=== PATIENT | female | born 1950 | race Caucasian/White ===

== ENCOUNTER → 2016-10-20 | Outpatient (CLI) | payer OTHER, BC ==
[~2016-10-20] MED LIST: ACET-1257 PO; AMOX500C3 PO; ASCO1CAP3 PO; ASCO500T3 PO; ASPCH81X PO; ASPI81TA28 PO; ATOR-24 PO; BISM262S7 PO; BUTA1CAP17 PO; CARB0.5D28 OPB; CHOL2000 PO; CLOT1CRE80 TOP; DICL-201 PO; DICL1GEL12 EXT; DICL1TAB5 PO; FENO160T PO; FEXO1TAB49 PO; FRCT/ PO; HYDR2.5L TOP; HYDR25TA4 PO; LEVO50TA PO; LEVO50TA6 PO; LPT/40 PO; METO1TAB70 PO; MISCCAP80 PO; MOME0.1O TOP; NYSTCRE32 TOP; OMEG12006 PO; POLY1DRO19; POTA-331 PO; POTA10CA28 PO; PPTBS PO; PRLSR20 PO; PROB1TAB16 PO; VITA400C15 PO; VITA400C3 PO; VITAMIN D3 PO; [UNRECOGNIZED DRUG - OTHER] EXT; [UNRECOGNIZED DRUG - OTHER] PO; [UNRECOGNIZED DRUG - OTHER] PO; [UNRECOGNIZED DRUG - OTHER] PO; [UNRECOGNIZED DRUG - REMARK] PO
--- NOTE | 2016-10-20 13:40 | DIAGNOSTIC IMAGING REPORT ---
LEFT KNEE RADIOGRAPHS WITH COMPARISON STANDING AP RADIOGRAPH OF THE RIGHT KNEE CLINICAL HISTORY: Medial left knee pain. Recent fall. COMPARISON: Knee radiograph April 09, 2016. FINDINGS: Alignment of the total right knee arthroplasty appears anatomic on this AP projection. There is marked narrowing of the patellofemoral joint space with lateral tilt of the patella. There is extensive osteophytosis of the left knee with chondrocalcinosis. Joint space calcifications are present. These were present on prior exam. There is no acute fracture within the left knee. There is no left knee joint effusion. IMPRESSION: 1. No acute fracture. 2. Marked patellofemoral compartment joint space narrowing with extensive osteophytosis and chondrocalcinosis of the left knee. The findings raise the possibility of CPPD arthropathy. Electronically signed by: Donovan Medellin M.D. 10/20/2016 1:38 PM Dictated Date/Time: 10/20/2016 1:36 PM
== END | disposition home or self-care (01) ==
LOC: C.RDSM 13:09
PROVIDERS: ATTEND Physical Medicine & Rehabilitation Sports Medicine
DX: M25.762 Osteophyte, left knee (principal); M11.262 Other chondrocalcinosis, left knee

== ENCOUNTER → 2017-01-04 | Outpatient (CLI) | payer OTHER, BC ==
[~2017-01-04] MED LIST changes: +METO-648 PO; -METO1TAB70 PO; +OXYC-57 PO; +WARF2TAB PO
== END | disposition home or self-care (01) ==
LOC: C.PAPS 07:40
PROVIDERS: ATTEND Obstetrics & Gynecology
DX: Z01.419 Encounter for gynecological examination (general) (routine) without abnormal findings (principal)

== ENCOUNTER → 2017-03-09 | Outpatient (CLI) | payer OTHER, BC ==
[~2017-03-09] MED LIST changes: -ASCO1CAP3 PO; -ASPI81TA28 PO; -BISM262S7 PO; -BUTA1CAP17 PO; -CLOT1CRE80 TOP; -DICL1TAB5 PO; -LEVO50TA PO; -LPT/40 PO; -METO-648 PO; +METO1TAB70 PO; -MISCCAP80 PO; -NYSTCRE32 TOP; -OXYC-57 PO; -POLY1DRO19; -POTA-331 PO; -VITA400C15 PO; -VITAMIN D3 PO; -WARF2TAB PO; -[UNRECOGNIZED DRUG - REMARK] PO
--- NOTE | 2017-03-09 11:01 | DIAGNOSTIC IMAGING REPORT ---
RIGHT FOOT MIN 3 VIEWS CLINICAL HISTORY: 66 years-old Female presenting with RIGHT FOOT PAIN , No known trauma. TECHNIQUE: Frontal, oblique, and lateral views of the right foot were obtained. COMPARISON: 2007. FINDINGS: Osteopenia. Valgus alignment of the first great toe increased from prior. Associated mild degenerative change of the first metatarsophalangeal joint. Os naviculare noted. Ossification along the medial aspect of the base of the first metatarsal is unchanged from prior, possibly development os or old injury. Mild loss of height of the longitudinal arch. Bone spur noted at the inferior calcaneus. Atherosclerosis. Degenerative changes at the ankle mortise IMPRESSION: 1. No acute osseous injury of the right foot. 2. Mild height loss of the longitudinal arch could suggest pes planus. Electronically signed by: Parag Gardner M.D. 03/09/2017 11:00 AM Dictated Date/Time: 03/09/2017 10:56 AM
== END | disposition home or self-care (01) ==
LOC: C.RDSM 12:45
PROVIDERS: ATTEND Physician Assistant
DX: M79.671 Pain in right foot (principal); R93.7 Abnormal findings on diagnostic imaging of other parts of musculoskeletal system

== ENCOUNTER → 2017-03-16 | Outpatient (CLI) | payer OTHER, BC | END | disposition home or self-care (01) | LOC: C.PATHSPEC 07:41 | PROVIDERS: ATTEND Physician Assistant | DX: N64.52 Nipple discharge (principal) ==

== ENCOUNTER → 2017-03-16 | Outpatient (CLI) | payer OTHER, BC | END | disposition home or self-care (01) | LOC: C.LABSPEC 17:49 | PROVIDERS: ATTEND Physician Assistant | DX: N64.52 Nipple discharge (principal) ==

== ENCOUNTER → 2017-03-22 | Outpatient (CLI) | payer OTHER, BC ==
--- NOTE | 2017-03-22 15:19 | MAMMOGRAPHY REPORT ---
BILATERAL DIGITAL DIAGNOSTIC MAMMOGRAM TOMOSYNTHESIS WITH CAD AND TARGETED RIGHT ULTRASOUND: 7 CLINICAL HISTORY: 66-year-old woman with a few week history of pain in the right breast. One and a h shari weeks ago she noticed bloody nipple discharge for which she was assessed by DETECTIVE AND INTELLIGENCE ANALYST and has since been on antibiotics. The bloody/pus-containing nipple discharge persists. Also due for annual bilat eral screening exam. TECHNIQUE: Bilateral breast tomosynthesis in addition to standard 2D mammography was performed. Curre nt study was also evaluated with a Computer Aided Detection (CAD) system. COMPARISON: Comparison is made to exams dated: 09/11/2015 mammogram, 09/10/2014 mammogram, 09/05/2013 staci mogram, 09/04/2012 mammogram, 09/02/2011 mammogram, and 09/01/2010 mammogram - [facility]. BREAST COMPOSITION: The tissue of both breasts is almost entirely fatty. FINDINGS: There is a new large dense mass and also a few associated air bubbles in the 6:00 anterior right breast measuring approximately 5 x 5 x 6 cm. No other new suspicious mass, focal area of archi tectural distortions or suspicious calcifications are identified bilaterally. Targeted ultrasound was performed in the area of pain pointed out by the patient, in the 6:00 anterio r periareolar right breast. There is a large heterogeneous fluid collection measuring approximately 4.0 x 3.0 x 4.6 cm. An additional finding of skin erythema is most prominent in the 3:00 periareolar right breast, in which this fluid collection extends very close to the dermis. IMPRESSION: ACR-BI-RADS CATEGORY 3: PROBABLY BENIGN, TARGETED ULTRASOUND ACR-BI-RADS CATEGORY 3: PRO BABLY BENIGN 1. A new 5 cm fluid collection in the 3:00 through 6:00 periareolar and retroareolar right breast is most compatible with an abscess, given the skin erythema, pain and appearance of the nipple discharg e. Surgical consultation is recommended. This was discussed with the patient and an appointment was obtained the same day with Dr. Barbosa, general surgery. 2. Otherwise stable mammographic appearance of the breasts without mammographic evidence of malignan cy. 3. Follow-up at complete resolution is recommended in the right breast, to exclude any underlying pr ocess. These results and recommendations were discussed with the patient at the time of the exam. Approximately 10% of breast cancers are not detected with mammography. A negative mammographic report should not delay biopsy if a clinically suggestive mass is present. Myrtle Gomes M.D. ay/:03/22/2017 10:37:06 Dynamometer Tester: Jennifer JARAMILLO (R)), [facility] letter sent: Follow Up Recommended 3 BI-RADS Code: ACR-BI-RADS Category 3: Probably Benign Ultrasound BI-RADS: ACR-BI-RADS Category 3: Pr obably Benign
== END | disposition home or self-care (01) ==
LOC: C.MAMM 09:47
PROVIDERS: ATTEND Physician Assistant
DX: N64.52 Nipple discharge (principal); N64.9 Disorder of breast, unspecified

== ENCOUNTER → 2017-05-11 | Outpatient (CLI) | payer OTHER, BC ==
[~2017-05-11] MED LIST changes: -HYDR25TA4 PO; -VITA400C3 PO; -[UNRECOGNIZED DRUG - OTHER] EXT; -[UNRECOGNIZED DRUG - OTHER] PO; -[UNRECOGNIZED DRUG - OTHER] PO; -[UNRECOGNIZED DRUG - OTHER] PO
--- NOTE | 2017-05-11 16:01 | DIAGNOSTIC IMAGING REPORT ---
L PELVIS UNILATERAL HIP 1 VIEW HISTORY: 66 years-old Female CHRONIC LEFT HIP PAIN chronic left hip pain. COMPARISON: None available TECHNIQUE: AP view of the pelvis with frog-leg view of the left hip FINDINGS: Moderate degenerative changes involve the bilateral femoral acetabular joints and SI joints. Severe facet arthropathy involves the lower lumbar spine. No acute fracture or dislocation. Soft tissues are unremarkable. IMPRESSION: 1. No acute fracture or dislocation. 2. Moderate degenerative changes of the bilateral femoral acetabular joints. The above report was generated using voice recognition software. It may contain grammatical, syntax or spelling errors. Electronically signed by: Elan Silva M.D. 05/11/2017 3:59 PM Dictated Date/Time: 05/11/2017 3:58 PM
== END | disposition home or self-care (01) ==
LOC: C.RDSM 11:39
PROVIDERS: ATTEND Physician Assistant
DX: M16.0 Bilateral primary osteoarthritis of hip (principal)

== ENCOUNTER 2017-06-21 05:14 | Inpatient (IN) | payer OTHER, BC ==
[2017-03-02 14:38] VITALS: BMI 38.0
--- NOTE | 2017-03-02 15:13 | PAT Medication Instructions ---
Service Date Mar 02, 2017. Current Home Medication List Acetamin/Butalbital/Caffeine (Fioricet), 1 TAB PO DIRECTED PRN for Pain Acetaminophen (Tylenol Extra Strength), 2 TAB PO Q8H PRN for Pain Amoxicillin (Amoxil), 500 MG PO DIRECTED PRN for BEFORE INVASIVE PROCEDURES Ascorbic Acid (Vitamin C), 1 TAB PO QPM Aspirin (Aspirin Chewable), 81 MG PO BID Atorvastatin (Lipitor), 40 MG PO QPM Bismuth Subsalicylate (Pepto-Bismol Susp), 1 DOSE PO DAILY PRN for Indigestion Carboxymethylcellulose Sodium (Refresh Tears), 1 DROP OPB BID PRN for DRY EYES Cholecalciferol (Vitamin D3), 1 CAP PO QPM Diclofenac (Voltaren), 75 MG PO BID Diclofenac Sodium (Topical) (Voltaren 1% Top Gel), 1 DOSE EXT BID PRN for Pain Fenofibrate (Tricor), 160 MG PO QPM Fexofenadine Hcl (Mia Allergy), 1 TAB PO HS Hydrochlorothiazide (Hctz), 25 MG PO DAILY AT 1200 Hydrocortisone (Topical) (Hydrocortisone), 1 APPLN TOP BID PRN for ITCHING Levothyroxine Sodium (Levothyroxine Sodium), 1 TAB PO QAM Metoprolol Succinate (Toprol Xl), 200 MG PO QPM Mometasone Furoate (Elocon), 1 APPLN TOP BID PRN for RASH [place]-3 Fatty Acids ([place] 3), 1 CAP PO QPM Omeprazole (Prilosec), 20 MG PO QAM Potassium Chloride (Micro-K Ext Rel), 10 MEQ PO QPM Probiotic Product (Probiotic), 1 TAB PO QPM Vitamin E (Vitamin E 400 Iu), 400 INTER.UNIT PO QPM [Adv. Proprietary], 2 ML PO BID [Macro-Minerals], 1 ML PO BID [Pro Balancing Cream], 1 DOSE EXT DAILY [Sea Vegetables], 1 ML PO BID Medication Instructions For Your Scheduled Surgery - Instructions to be given by surgeon: Diclofenac (Voltaren), 75 MG PO BID Aspirin (Aspirin Chewable), 81 MG PO BID - Hold the following medications 2 weeks prior to surgery: Vitamin E (Vitamin E 400 Iu), 400 INTER.UNIT PO QPM [Adv. Proprietary], 2 ML PO BID [Macro-Minerals], 1 ML PO BID [Sea Vegetables], 1 ML PO BID [place]-3 Fatty Acids ([place] 3), 1 CAP PO QPM - Hold the following medications 24 hours prior to surgery: [Pro Balancing Cream], 1 DOSE EXT DAILY Diclofenac Sodium (Topical) (Voltaren 1% Top Gel), 1 DOSE EXT BID PRN for Pain Fenofibrate (Tricor), 160 MG PO QPM Mometasone Furoate (Elocon), 1 APPLN TOP BID PRN for RASH Hydrocortisone (Topical) (Hydrocortisone), 1 APPLN TOP BID PRN for ITCHING - Hold the following medications the morning of surgery: Hydrochlorothiazide (Hctz), 25 MG PO DAILY AT 1200 Bismuth Subsalicylate (Pepto-Bismol Susp), 1 DOSE PO DAILY PRN for Indigestion Acetamin/Butalbital/Caffeine (Fioricet), 1 TAB PO DIRECTED PRN for Pain - Take the following medications the morning of surgery with a sip of water OTHERWISE NOTHING TO EAT OR DRINK AFTER MIDNIGHT: Omeprazole (Prilosec), 20 MG PO QAM Acetaminophen (Tylenol Extra Strength), 2 TAB PO Q8H PRN for Pain (may take if needed up to 4 hours prior to surgery) Levothyroxine Sodium (Levothyroxine Sodium), 1 TAB PO QAM Carboxymethylcellulose Sodium (Refresh Tears), 1 DROP OPB BID PRN for DRY EYES - Take the following medications as scheduled the night before surgery: Potassium Chloride (Micro-K Ext Rel), 10 MEQ PO QPM Probiotic Product (Probiotic), 1 TAB PO QPM Cholecalciferol (Vitamin D3), 1 CAP PO QPM Ascorbic Acid (Vitamin C), 1 TAB PO QPM Metoprolol Succinate (Toprol Xl), 200 MG PO QPM Acetaminophen (Tylenol Extra Strength), 2 TAB PO Q8H PRN for Pain Carboxymethylcellulose Sodium (Refresh Tears), 1 DROP OPB BID PRN for DRY EYES If you have any questions please call us at [phone] or [phone] or [phone]
[2017-03-02 15:59] LABS: BASO % 0.3 %; BASO ABS # 0.02 K/uL (0-0.2); COMPLETE YES; EOS % 1.5 %; IG% 0.6 %; LYMPH ABS # 0.93 K/uL (1.2-3.4); MEAN CELL VOLUME 80.1 fL (80-100); MEAN CORPUSCULAR HEMOGLOBIN 25.9 pg (25-34); MEAN CORPUSCULAR HGB CONC 32.3 g/dl (32-36); MEAN PLATELET VOLUME 10.8 fL (7.4-10.4); MONO % 8.6 %; PLATELET COUNT 302 K/uL (130-400); RED BLOOD COUNT 4.87 M/uL (4.2-5.4); WHITE BLOOD COUNT 6.66 K/uL (4.8-10.8)
[2017-03-02 16:09] LABS: PARTIAL THROMBOPLASTIN RATIO 1.1; PROTHROMBIN TIME (PATIENT) 10.9 SECONDS (9.0-12.0)
--- NOTE | 2017-03-02 16:14 | DIAGNOSTIC IMAGING REPORT ---
CHEST 2 VIEWS ROUTINE CLINICAL HISTORY: Preoperative evaluation. COMPARISON STUDY: Chest radiograph November 14, 2014. FINDINGS: Lung volumes are normal. Lungs are clear. No pneumothorax or pleural effusion is present. Cardiac size is normal. Mediastinal contours are normal. There is no evidence of pulmonary edema. Chronic deformity of the proximal right humerus is incidentally noted. IMPRESSION: No acute cardiopulmonary findings. Electronically signed by: Donovan Medellin M.D. 03/02/2017 4:12 PM Dictated Date/Time: 03/02/2017 4:11 PM
[2017-03-02 16:21] LABS: URINE APPEARANCE CLEAR (CLEAR); URINE BILIRUBIN NEG (NEG); URINE COLOR YELLOW; URINE NITRITE NEG (NEG); URINE SPECIFIC GRAVITY 1.015 (1.000-1.030); UROBILINOGEN NEG (NEG); ZZUR CULT IF INDIC CLEAN CATCH NO
[2017-03-02 16:24] LABS: MANUAL MICROSCOPIC REQUIRED? NO; REVIEW REQ? NO
[2017-03-02 16:25] LABS: CALCIUM 9.7 mg/dl (8.5-10.1); CREATININE 1.1 mg/dl (0.60-1.20); POTASSIUM 4.1 mmol/L (3.5-5.1)
[2017-05-01 16:08] VITALS: BMI 38.0
--- NOTE | 2017-06-14 08:52 | HISTORY & PHYSICAL EXAMINATION ---
DATE OF ADMISSION: 06/21/2017 CHIEF COMPLAINT: Left knee pain. HISTORY OF PRESENT ILLNESS: This 67-year-old white female presents to the office with complaints of left knee pain that had been ongoing for the last several years. Pain became acutely worse in October 2016. She slipped and fell at that time. She was previously scheduled for total knee arthroplasty on 03/29/2017. She developed a right breast mastitis at that time and had to postpone surgery. She is now ready to proceed. Pain is worse with weightbearing. It is affecting her ADLs. Pain is both medial and lateral. She denies any catching or locking. No buckling. Occasional mild effusions. She has tried activity modification, oral anti-inflammatories, and physical therapy without lasting relief. 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 She has a history of previous right total knee arthroplasty and has done well with that. She elects to proceed with the same on the left. X-rays have been obtained. PAST MEDICAL HISTORY: Significant for hypertension, elevated cholesterol, sleep apnea, use of CPAP, hypothyroidism, previous hyperparathyroidism, osteoarthritis, low back pain, obesity, seasonal allergies, GERD, depression, history of recent breast mastitis and seborrheic keratosis. PAST SURGICAL HISTORY: Tonsillectomy in 1957, right eye surgery 2000, lipoma excision, oral surgery, left foot bunionectomy in 2008, hammertoe correction, colonoscopy in 2003, right total knee arthroplasty in December 2014, and recent breast I&D March 2017. SOCIAL HISTORY: The patient is employed. Trains dogs for fragility. No tobacco use, no ETOH use. Lives by herself. FAMILY HISTORY: Noncontributory. ALLERGIES: KNOWN ALLERGY TO TYLENOL WITH CODEINE. CURRENT MEDICATIONS: Mia 180 mg p.o. at bedtime, amoxicillin 500 mg prior to dental procedures, aspirin 81 mg p.o. b.i.d., diclofenac 75 mg p.o. b.i.d. p.r.n., Elocon 0.1% topical cream applied daily b.i.d., fenofibrate 160 mg p.o. daily, Fioricet 2 tablets p.o. q. 4 hours p.r.n. headaches, K-Dur 10 mEq p.o. daily, Levoxyl 50 mcg p.o. daily, Lipitor 40 mg p.o. daily, mometasone 0.1% topical cream applied daily, nystatin, triamcinolone topical ointment applied b.i.d., Pepto-Bismol p.r.n., Prilosec 20 mg p.o. daily, Toprol-XL 200 mg p.o. daily, Tylenol 500 mg p.o. q. 6 hours p.r.n., vitamin C and D daily, Voltaren topical 1% gel q.a.m. REVIEW OF SYSTEMS: Significant for above stated conditions, otherwise unremarkable. PHYSICAL EXAMINATION: GENERAL: Well-developed, well-nourished elderly white female in no acute distress. Sitting in a chair. Alert and oriented. SKIN: Warm and dry with good turgor. No rashes. She does have significant flaking of her skin secondary to her keratosis. Postsurgical scar is present on the right knee. HEENT: Normocephalic, atraumatic. Eyes PERRLA, EOMI. Nares patent bilaterally without turbinate enlargement. Oropharynx without erythema or exudate. No lesions noted. Uvula midline. Oral mucosa moist. Fair dentition. Extensive dental fillings are noted. Several dental CAPS. She does have very thin hair. HEART: RRR. No MGR. LUNGS: Clear to auscultation bilaterally. No crackles, rhonchi or wheezing. Good air movement. ABDOMEN: Obese. Bowel sounds present x4, soft, nontender. No organomegaly. MUSCULOSKELETAL: Left knee evaluation reveals focal discomfort with palpation over the anterior and medial joint lines. No lateral joint line discomfort today. Full terminal extension. Flexion to greater than 100 degrees. Strength is 5/5 with fair quad tone. Stable collateral ligaments. No defect in the patellar tendon or quadriceps tendon. She ambulates with a mildly antalgic gait. NEUROLOGIC: Cranial nerves II through XII are intact. Gross sensation is intact across the upper and lower extremities by soft touch. Peripheral pulses are 2+. DATA: Radiographic images previously obtained shows DJD of the left knee. Periarticular osteophytes, subchondral sclerosis, and joint space narrowing are present. IMPRESSION: Left knee end-stage degenerative joint disease. PLAN: Informed written consent to proceed with left total knee arthroplasty will be obtained in the day of surgery. Postoperative prescriptions for Percocet and Coumadin will be provided at discharge from the hospital. Preoperative lab work, EKG, and chest x-ray have been ordered. She has already seen Dr. Obregon for medical clearance. We have received medical clearance from her general surgeon as well. Anticipate discharge to home with home health services for 2 weeks and then outpatient PT. She does live alone but will have multiple visitors. She already has a walker, crutches and cane. DARREL
[2017-06-21] VITALS (11 sets, daily range): BP systolic 120–146; BP diastolic 73–90; PULSE 59–114; TEMP 36.6–37; O2SAT 96–100; Ht 165.1 cm; Wt 105.7 kg
[~2017-06-21] VITALS: Ht 165.1 cm; Wt 105.7 kg
[~2017-06-21 05:14] MED LIST changes: +METO-648 PO; -METO1TAB70 PO
[2017-06-21] MEDS ORDERED: LACTATED RINGER'S 1000ML 500 ML IV ONE (06:00)
[2017-06-21] MEDS ORDERED: ROPIVACAINE 5MG/ML 30 ML 150 MG, BUPIVACAINE/EPINEPHR 0.5% MPF 30 ML, KETOROLAC TROMETH... INFIL SCH ×7 (06:00)
[2017-06-21] MEDS ORDERED: LACTATED RINGER'S 1000ML IV SCH (06:00)
[2017-06-21] MEDS ORDERED: SODIUM CHLORIDE 0.9% 1000ML 1,000 ML IV SCH (06:00)
[2017-06-21] MEDS ORDERED: CEFAZOLIN 2000MG IV PUSH 10 ML IV SCH (06:00)
[2017-06-21] MEDS ORDERED: TRANEXAMIC ACID INJ 1,000 MG in SYRINGE 0 ML IV SCH (06:00)
[2017-06-21] MEDS ORDERED: BUPIVACAINE 0.25% 30 ML VIAL ONE (06:17)
[2017-06-21] MEDS ORDERED: BUPIVACAINE 0.5 % 5 MG/1 ML PF 10ML VIAL ONE (06:17)
[2017-06-21] MEDS ORDERED: HYDROmorphone INJ 1 MG/ML SYR IV PRN (06:30)
[2017-06-21] MEDS ORDERED: FENTANYL CITRATE INJ 50 MCG/1 ML 2 ML VIAL IV PRN (06:30)
[2017-06-21] MEDS ORDERED: EpHEDrine SULFATE INJ 50 MG/ML AMP IV PRN (06:30)
[2017-06-21] MEDS ORDERED: LABETALOL HCL IV 5 MG/ML 20ML IV PRN (06:30)
[2017-06-21] MEDS ORDERED: ONDANSETRON INJ 2 MG/ML 2 ML VIAL IV PRN ×2 (06:30→08:45)
[2017-06-21] MEDS ORDERED: PHENYLEPHRINE 100MCG/ML 5ML SYR IV PRN (06:30)
[2017-06-21] MEDS ORDERED: ATROPINE SULFATE 0.1 MG/ML 5ML SYR IV PRN (06:30)
[2017-06-21] MEDS ORDERED: POVIDONE-IODINE OP SOLN 30 ML BTL ONE (06:34)
[2017-06-21] MEDS ORDERED: ORTHO JOINT ANESTHETIC ONE (06:34)
--- NOTE | 2017-06-21 06:36 | History & Physical Bridge Note ---
H&P Re-Evaluation Bridge Note: I have examined the patient, reviewed the History & Physical and in the interval since the performance of the History & Physical I have noted the following changes of clinical significance:consent obtained. No changes noted
[2017-06-21] MEDS ORDERED: MIDAZOLAM HCL 1 MG/ML 2ML VIAL ONE ×3 (06:39→07:28)
[2017-06-21] MEDS ORDERED: LIDOCAINE HCL 2% 2 ML VIAL (20MG/ML) ONE (07:14)
[2017-06-21] MEDS ORDERED: PROPOFOL IV EMULSION 10 MG/ML 20 ML VIAL IV ONE ×2 (07:14→07:51)
--- NOTE | 2017-06-21 08:26 | [facility] Post Operative Brief Note ---
Immediate Operative Summary Operative Date Jun 21, 2017. Pre-Operative Diagnosis Left Knee End-Stage Degenerative Joint Disease Post-Operative Diagnosis Left Knee End-Stage Degenerative Joint Disease Procedure(s) Performed Left Total Knee Arthroplasty Surgeon Dr. Miller Concaver Surgeon(s) TAMMY Montanez Estimated Blood Loss 50 ml Findings severe djd PFJ Fluids (cc crystalloids) 1300cc Specimens A. Left Knee Bone and Tissue Drains none Anesthesia spinal/block Complication(s) None Disposition Recovery Room / PACU
[2017-06-21] MEDS ORDERED: BISACODYL 10 MG SUPP PR PRN (08:45)
[2017-06-21] MEDS ORDERED: ALUMINUM/MAGNESIUM/SIMETH (MAALOX MAX) 30 ML UDC PO PRN (08:45)
[2017-06-21] MEDS ORDERED: ACETAMINOPHEN 325 MG TAB PO PRN (08:45)
[2017-06-21] MEDS ORDERED: DiphenhydrAMINE HCL 50 MG/ML VIAL IV PRN (08:45)
[2017-06-21] MEDS ORDERED: MAGNESIUM HYDROXIDE SUSP 30 ML UDC PO PRN (08:45)
[2017-06-21] MEDS ORDERED: MoRPHine SULFATE 2 MG/ML CARP IV PRN (08:45)
[2017-06-21] MEDS ORDERED: METOCLOPRAMIDE HCL INJ 5 MG/ML 2 ML VIAL IV PRN (08:45)
[2017-06-21] MEDS ORDERED: ACETAMINOPHEN IV 100 ML IV PRN (08:45)
--- NOTE | 2017-06-21 08:49 | OPERATIVE REPORT ---
DATE OF OPERATION: 06/21/2017 SURGEON: Pawan Miller MD. SALES ATTENDANT: Robert Campa PA-C. No resident or fellow available. PREOPERATIVE DIAGNOSIS: Osteoarthritis with severe patellofemoral subluxation, left knee. POSTOPERATIVE DIAGNOSIS: Same. OPERATION PERFORMED: Cemented left total knee replacement with rebalancing of the extensor mechanism PERIOPERATIVE SITUATION: Medically cleared female with intractable knee pain with physical exam, x-ray and previous MRI scans revealing substantial disease with marked patellofemoral chronic instability and marked deformity. SUMMARY OF IMPLANTS: Size 3 posterior cruciate left femur, size 3 rotating tibial platform with keel, oval domed 3 peg patella size 38, tibial insert size 3, posterior cruciate substituting 12.5. Two bags of Palacos G cement. ESTIMATED BLOOD LOSS: 50 mL. CRYSTALLOID: 1300 mL. DESCRIPTION OF PROCEDURE: After the patient appropriately identified, site verified, consent verified, antibiotic confirmed as being given, the left lower extremity was prepped and draped in usual routine fashion. Tourniquet inflated to 300 mmHg after exsanguination of limb with a rubber Esmarch bandage for a total of approximately 48 minutes. Midline exposure was utilized. Parapatellar arthrotomy performed. Synovectomy completed. The extensor mechanism had multiple osteophytes, osteochondral pedunculated body, these were all removed. The extensor mechanism was then balanced. Osteophytes on the femur were resected. The femur was markedly deformed including very shallow trochlea with significant osteophytes around the margin. The lateral compartment and the patellofemoral compartment with grade 4 disease. The distal femur was then entered after the cruciates were identified and then the cruciates were sacrificed. The tibia was easily subluxated. The distal femur was resected 12 mm. Proximal tibia resected to 4 mm. The extension gap was excellent. Femur was sized to between a 4 and a 3, was measured 4 cut 3. No notching. The flexion gap was excellent. The posterior capsule was injected with the Orthomix. The box cut was then made and the size 3 femur trial fit well. The tibia was then broached and reamed to a size 3 with good coverage. The implant with 12.5 spacer revealed the need to be markedly stable in full extension, full flexion and mid range flexion. The patella was sized to a 38. Appropriate resection made leaving 14 mm and the trial tracked well and fit well. All trial implants were then removed. The wound was copiously irrigated with Pulsavac with Betadine. A Pulsavac injected with Orthomix and then the permanent cemented into position. After 12 minutes, the tourniquet was deflated. After additional 2 minutes, the knee was flexed. Minor cement removal was needed to occur. The wound was irrigated one final time with Betadine and then the permanent liner seated. The knee reduced and closed with #1 Ethibond, #1 Vicryl, 2-0 Vicryl and stainless steel clips. Appropriate dressing applied and the patient transferred to recovery room in satisfactory condition having tolerated the procedure well. DVT prophylaxis per protocol. I attest to the content of the Intraoperative Record and any orders documented therein. Any exception s are noted below.
--- NOTE | 2017-06-21 09:34 | DIAGNOSTIC IMAGING REPORT ---
LEFT KNEE 2 VIEWS History: Left total knee arthroplasty. Degenerative arthritis. Postop. FINDINGS: The patient is status post a left total knee arthroplasty. The hardware is intact. No fracture or dislocation. Skin sabina are in place. IMPRESSION: Left total knee arthroplasty. No evidence for hardware complication. Electronically signed by: Tonio Alicea M.D. 06/21/2017 9:33 AM Dictated Date/Time: 06/21/2017 9:33 AM
--- NOTE | 2017-06-21 10:23 | Anesthesiology Progress Note ---
Anesthesia Post Op Note Date & Time Jun 21, 2017 at 10:22 Vital Signs Pain Intensity: 0 Vital Signs Past 12 Hours Date Time Temp Pulse Resp B/P (MAP) Pulse Ox O2 Delivery O2 Flow Rate FiO2 06/21/17 10:10 68 19 115/67 99 Nasal Cannula 2 06/21/17 10:00 36.6 68 17 116/75 96 Nasal Cannula 2 06/21/17 09:50 65 16 122/65 98 Nasal Cannula 2 06/21/17 09:40 65 17 124/65 98 Nasal Cannula 2 06/21/17 09:30 36.1 67 19 120/73 99 Nasal Cannula 2 06/21/17 09:20 68 19 114/64 99 Nasal Cannula 2 06/21/17 09:10 63 17 124/68 99 Nasal Cannula 2 06/21/17 09:00 36.4 67 16 121/77 99 Nasal Cannula 2 06/21/17 08:50 67 16 125/75 100 Nasal Cannula 2 06/21/17 08:40 71 18 125/71 98 Nasal Cannula 2 06/21/17 08:34 36.0 74 18 119/74 97 Nasal Cannula 2 06/21/17 05:36 36.7 90 20 146/86 98 Room Air Notes Mental Status: alert / awake / arousable, participated in evaluation Pt Amnestic to Procedure: Yes Nausea / Vomiting: adequately controlled Pain: adequately controlled Airway Patency, RR, SpO2: stable & adequate BP & HR: stable & adequate Hydration State: stable & adequate Neuraxial Anesthesia: was administered, sensory block is resolving Anesthetic Complications: no major complications apparent Doing well. VSS.
[2017-06-21] MEDS ORDERED: MoRPHine SULFATE 4 MG/ML 1 ML CARP\\VIAL IV PRN (11:30)
[2017-06-21] MEDS ORDERED: D5W AND 1/2NSS + 20MEQ KCL 1,000 ML IV SCH (12:00)
[2017-06-21] MEDS: FERROUS GLUCONATE 324 MG TAB PO SCH ×2 (13:13→18:15)
[2017-06-21] MEDS: MULTIVITAMIN TAB PO SCH (13:14)
[2017-06-21] MEDS: DOCUSATE SODIUM 100 MG CAP PO SCH ×2 (13:14→21:01)
[2017-06-21] MEDS: PANTOprazole SOD 40 MG TAB PO SCH (13:14)
[2017-06-21] MEDS ORDERED: NURSING VERBAL MED ORDER ONE (13:15)
[2017-06-21] MEDS: KETOROLAC TROMETHAMINE 15 MG/ML VIAL IV. SCH ×3 (13:15→23:37)
--- NOTE | 2017-06-21 13:37 | PROGRESS NOTE ---
DATE: 06/21/2017 Status post left total knee replacement. She is doing well. There is no major issues. Neurovascular check is limited by spinal wearing off, but is progressing nicely. She denies chest pain, shortness of breath, fever, chills, nausea, vomiting or headache. Postop x-rays look excellent. ASSESSMENT: Status post total knee replacement left lower extremity. Continue with postop care pathway. Coumadin this evening per nomogram.
[2017-06-21] MEDS ORDERED: OXYC-57 PO (13:41)
[2017-06-21] MEDS ORDERED: WARF2TAB PO (13:41)
--- NOTE | 2017-06-21 13:57 | Medical Consult ---
Consultation Date of Consultation: Jun 21, 2017. Attending Physician: Pawan Miller M.D. Reason for Consultation: Post Op Medical Management History of Present Illness 67 year old female who is s/p left TKA today by Dr. Miller. Patient reports increasing knee pain since her teenage years from an accident. She failed outpatient conservative measures and therefore presented for the planned procedure today. Post operatively the patient is doing well. She reports her pain is well controlled. She reports residual numbness to the BLLE, L > R, from the surgery today. She denies chest pain and shortness of breath. No lightheadedness or dizziness. She denies abdominal pain and nausea. She thinks she may have been incontinent of urine post op when she was still numb. 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 Surgical Problems: (1) H/O partial thyroidectomy Status: Chronic (2) History of tonsillectomy and adenoidectomy Status: Chronic (3) Status post total knee replacement, right Status: Chronic Family History FH: abdominal aortic aneurysm MOTHER Hypertension FATHER MOTHER Stroke FATHER Social History Smoking Status: Never Smoker Alcohol Use: none Allergies Coded Allergies: Codeine (Verified Adverse Reaction, Intermediate, anxiety/restlessness, ) PT REPORTS TYLENOL WITH CODEINE ALLERGY PT REPORTS CAN TAKE REGULAR TYLENOL - DENIES ALLERGY TO TYLENOL Home Medications Elocon (Mometasone Furoate) 0.1 % Oin 1 Appln TOP BID PRN 10 Days Hydrocortisone (Hydrocortisone (Topical)) 2.5 % Lot 1 Appln TOP BID PRN 10 Days Refresh Tears (Carboxymethylcellulose Sodium) 0.5 % Philip 1 Drop OPB BID PRN Voltaren 1% Top Gel (Diclofenac Sodium (Topical)) 1 % Gel 1 Dose EXT BID PRN Fioricet (Acetaminophen/Butalbital/Caffeine) 1 Ea Tab 1 Tab PO DIRECTED PRN Pepto-Bismol Susp (Bismuth Subsalicylate) 30 Ml/524 Mg Susp 1 Dose PO DAILY PRN Tylenol Extra Strength (Acetaminophen) 500 Mg Tab 2 Tab PO Q8H PRN Amoxil (Amoxicillin) 500 Mg Cap 500 Mg PO DIRECTED PRN MAY USE FOR OTHER INVASIVE PROCEDURES DIRECTED Prilosec (Omeprazole) 20 Mg Capcr 20 Mg PO QAM Mia Allergy (Fexofenadine Hcl) 180 Mg Tab 1 Tab PO HS 14 Days Aspirin Chewable (Aspirin) 81 Mg Chew 81 Mg PO BID PT INSTRUCTED TO STOP ASPIRIN 5 DAYS BEFORE PER SURGEON INSTRUCTIONS Probiotic (Probiotic Product) 1 Tab Tab 1 Tab PO QPM Leeds 3 (Leeds-3 Fatty Acids) 1 Cap Cap 1 Cap PO QPM Vitamin C (Ascorbic Acid) 500 Mg Tab 1 Tab PO QPM Voltaren (Diclofenac Sodium) 75 Mg Tabcr 75 Mg PO BID WITH FOOD - RECEIVED PRE OP INSTRUCTIONS FROM SURGEON OFFICE Micro-K Ext Rel (Potassium Chloride) 10 Meq Capcr 10 Meq PO QPM Tricor (Fenofibrate) 160 Mg Tab 160 Mg PO QPM Toprol Xl (Metoprolol Succinate) 200 Mg Tab 200 Mg PO QPM Lipitor (Atorvastatin Calcium) 40 Mg Tab 40 Mg PO QPM Levothyroxine Sodium 50 Mcg Tab 1 Tab PO QAM 90 Days Current Inpatient Medications Current Inpatient Medications Medications (Trade) Dose Ordered Sig/Kareem Route Start Time Stop Time Status Last Admin Dose Admin Cefazolin Sodium 2000 mg/Syringe 10 ml @ 2.5 mls/min Q8H IV 06/21/17 15:00 06/21/17 23:03 Ketorolac Tromethamine (Toradol Inj) 15 mg Q6H IV. 06/21/17 12:00 06/22/17 08:44 06/21/17 13:15 15 MG Oxycodone HCl (Roxicodone Immediate Rel Tab) 1 TABLET FOR PAIN RATING... Q4H PRN PO 06/21/17 08:45 07/05/17 08:44 Morphine Sulfate (MoRPHine SULFATE INJ) 2 mg Q1H PRN IV 06/21/17 08:45 07/05/17 08:44 Acetaminophen (Tylenol Tab) 650 mg Q6H PRN PO 06/21/17 08:45 07/21/17 08:44 Magnesium Hydroxide (Milk Of Magnesia Susp) 30 ml Q6H PRN PO 06/21/17 08:45 07/21/17 08:44 Bisacodyl (Dulcolax Supp) 10 mg DAILY PRN MD 06/21/17 08:45 07/21/17 08:44 Docusate Sodium (coLACE CAP) 100 mg BID PO 06/21/17 09:00 07/21/17 08:59 06/21/17 13:14 100 MG Diphenhydramine HCl (Benadryl Inj) 25 mg Q8H PRN IV 06/21/17 08:45 07/21/17 08:44 Al Hydrox/Mg Hydrox/Simethicone (Maalox Max Susp) 15 ml Q4H PRN PO 06/21/17 08:45 07/21/17 08:44 Multivitamins (Multivitamin Tab) 1 tab QAM PO 06/21/17 09:00 07/21/17 08:59 06/21/17 13:14 1 TAB Ondansetron HCl (Zofran Inj) 4 mg Q6H PRN IV 06/21/17 08:45 07/21/17 08:44 Metoclopramide HCl (Reglan Inj) 10 mg Q6H PRN IV 06/21/17 08:45 07/21/17 08:44 Ferrous Gluconate (Ferrous Gluconate Tab) 324 mg TIDM PO 06/21/17 12:30 07/21/17 12:29 06/21/17 13:13 324 MG Pantoprazole Sodium (Protonix Tab) 40 mg QAM PO 06/21/17 09:00 07/21/17 08:59 06/21/17 13:14 40 MG Tranexamic Acid 1000 mg/Sodium Chloride 110 ml @ 660 mls/hr Q6H IV 06/21/17 14:30 06/21/17 14:39 Dexamethasone Sodium Phosphate 10 mg/Syringe 2.5 ml @ 1 mls/min TODAY@0730 ONCE IV 06/22/17 07:30 06/22/17 07:32 Aspirin (Ecotrin Tab) 81 mg BID PO 06/21/17 21:00 07/21/17 20:59 Atorvastatin Calcium (Lipitor Tab) 40 mg QPM PO 06/21/17 21:00 07/21/17 20:59 Levothyroxine Sodium (Synthroid Tab) 50 mcg DAILYBB PO 06/22/17 06:00 07/22/17 05:59 Metoprolol Succinate (Toprol Xl Tab) 200 mg QPM PO 06/21/17 21:00 07/21/17 20:59 Miscellaneous Information (Order Awaiting Action) 1 ea QS N/A 06/21/17 16:00 07/21/17 15:59 Potassium Chloride (Klor-Con M10) 10 meq QPM PO 06/21/17 21:00 07/21/17 20:59 Miscellaneous Information (Order Awaiting Action) 1 ea QS N/A 06/21/17 16:00 07/21/17 15:59 Miscellaneous Information (Order Awaiting Action) 1 ea QS N/A 06/21/17 16:00 07/21/17 15:59 Acetaminophen 100 ml @ 400 mls/hr Q8H PRN IV 06/21/17 08:45 07/21/17 08:44 Morphine Sulfate (MoRPHine SULFATE INJ) 4 mg Q1H PRN IV 06/21/17 11:30 07/05/17 11:29 Review of Systems ROS per HPI, all other systems reviewed and negative Physical Exam Date Time Temp Pulse Resp B/P (MAP) Pulse Ox O2 Delivery O2 Flow Rate FiO2 06/21/17 12:42 69 16 144/86 (105) 96 2.0 06/21/17 11:41 36.6 59 19 124/77 (93) 99 Nasal Cannula 2.0 06/21/17 11:15 62 16 136/80 (98) 99 2.0 06/21/17 10:45 Nasal Cannula 2.0 06/21/17 10:45 Nasal Cannula 2.0 06/21/17 10:45 36.9 78 16 125/78 (94) 99 Nasal Cannula 2.0 06/21/17 10:20 36.5 70 20 134/73 98 Nasal Cannula 2 06/21/17 10:10 68 19 115/67 99 Nasal Cannula 2 06/21/17 10:00 36.6 68 17 116/75 96 Nasal Cannula 2 06/21/17 09:50 65 16 122/65 98 Nasal Cannula 2 06/21/17 09:40 65 17 124/65 98 Nasal Cannula 2 06/21/17 09:30 36.1 67 19 120/73 99 Nasal Cannula 2 06/21/17 09:20 68 19 114/64 99 Nasal Cannula 2 06/21/17 09:10 63 17 124/68 99 Nasal Cannula 2 06/21/17 09:00 36.4 67 16 121/77 99 Nasal Cannula 2 06/21/17 08:50 67 16 125/75 100 Nasal Cannula 2 06/21/17 08:40 71 18 125/71 98 Nasal Cannula 2 06/21/17 08:34 36.0 74 18 119/74 97 Nasal Cannula 2 06/21/17 05:36 36.7 90 20 146/86 98 Room Air General Appearance: WD/WN, no apparent distress Head: normocephalic, atraumatic Eyes: normal inspection, EOMI, sclerae normal ENT: hearing grossly normal, + pertinent finding (mucous membranes moist) Neck: supple, no JVD, trachea midline Respiratory/Chest: lungs clear, normal breath sounds, no respiratory distress Cardiovascular: regular rate, rhythm, no edema, normal peripheral pulses Abdomen/GI: normal bowel sounds, non tender, soft, no organomegaly Extremities/Musculoskelatal: + pertinent finding (s/p left knee surgery, surgical dressing dry and intact, CSM checks intac to LLE) Neurologic/Psych: no motor/sensory deficits, alert, normal mood/affect, oriented x 3 Skin: normal color, warm/dry Laboratory Results Last 24 Hours Test 06/21/17 13:28 Assessment & Plan S/P LEFT TKA - POD#0 - activity and wound care orders as per ortho - pain control with bowel regimen - PT/OT - monitor H/H for acute blood loss anemia and transfuse blood products PRN HTN - BP controlled, continue metoprolol - was on HCTZ however was discontinued due to hyponatremia; Na+ levels normalized on outpatient labs, will recheck today HYPOTHYROIDISM - continue levothyroxine HLD - continue atorvastatin and fenofibrate FLAQUITA - CPAP as per home settings DVT PROPHYLAXIS - ASA 81mg BID per ortho Thank you for this consultation. We will follow the patient with you during their hospital stay. You can reach a member of the [facility] Hospitalist Team 27/02 via pager @ [phone]. Attending physician, Dr. Grey Addendum I have seen and examined the patient with MOBILE APPLICATION ARCHITECT Johanna Love and agree with the assessment and plan and would like to comment on the following: This is a 67 year old well appearing female patient s/p left total knee arthroplasty. History of hypertension with blood pressure controlled. Will send postop CBC and electrolyte labs today at 6 PM. Will continue to follow patient with orthopedics service.
[2017-06-21] MEDS ORDERED: TRANEXAMIC ACID INJ 1,000 MG in SODIUM CHLORIDE 0.9% 100ML 100 ML IV SCH (14:30)
[2017-06-21] MEDS ORDERED: WARFARIN SOD 5 MG TAB PO SCH (16:00)
[2017-06-21] MEDS: CEFAZOLIN IV 2,000 MG in SYRINGE 0 ML IV SCH ×2 (16:11→23:36)
[2017-06-21 18:18] LABS: HEMATOCRIT 35.7 % (37-47); MEAN CELL VOLUME 85.4 fL (80-100); MEAN CORPUSCULAR HEMOGLOBIN 26.6 pg (25-34); MEAN CORPUSCULAR HGB CONC 31.1 g/dl (32-36); MEAN PLATELET VOLUME 10.8 fL (7.4-10.4); PLATELET COUNT 282 K/uL (130-400); RED BLOOD COUNT 4.18 M/uL (4.2-5.4); WHITE BLOOD COUNT 15.04 K/uL (4.8-10.8)
[2017-06-21 18:36] LABS: BUN/CREATININE RATIO 20.3 (10-20); CALCIUM 8.7 mg/dl (8.5-10.1); CREATININE 0.9 mg/dl (0.60-1.20); POTASSIUM 4.1 mmol/L (3.5-5.1)
[2017-06-21] MEDS: ASPIRIN 81 MG ECTAB PO SCH (20:59)
[2017-06-21] MEDS ORDERED: METOPROLOL SUCC 50MG EXT REL TAB PO SCH (21:00)
[2017-06-21] MEDS ORDERED: ATORVASTATIN 40 MG TAB PO SCH (21:00)
[2017-06-21] MEDS ORDERED: POTASSIUM CHLORIDE 10 MEQ TABCR PO SCH (21:00)
[2017-06-22] MEDS: OXYCODONE HCL IR 5 MG TAB (IMMEDIATE RELEASE) PO PRN ×2 (03:27→12:17)
[2017-06-22 03:39] VITALS: BP 108/67; PULSE 77; TEMP 37.2; O2SAT 98
[2017-06-22] MEDS: KETOROLAC TROMETHAMINE 15 MG/ML VIAL IV. SCH (05:30)
[2017-06-22] MEDS ORDERED: LEVOTHYROXINE 50 MCG TAB PO SCH (06:00)
[2017-06-22 06:20] LABS: HEMATOCRIT 30.8 % (37-47); MEAN CELL VOLUME 84.8 fL (80-100); MEAN CORPUSCULAR HEMOGLOBIN 26.4 pg (25-34); MEAN CORPUSCULAR HGB CONC 31.2 g/dl (32-36); MEAN PLATELET VOLUME 10.8 fL (7.4-10.4); PLATELET COUNT 215 K/uL (130-400); RED BLOOD COUNT 3.63 M/uL (4.2-5.4); WHITE BLOOD COUNT 9.82 K/uL (4.8-10.8)
[2017-06-22 06:21] LABS: PROTHROMBIN TIME (PATIENT) 11.2 SECONDS (9.0-12.0)
[2017-06-22 06:49] LABS: BUN/CREATININE RATIO 19.3 (10-20); CALCIUM 8.7 mg/dl (8.5-10.1); CREATININE 0.84 mg/dl (0.60-1.20); POTASSIUM 4.1 mmol/L (3.5-5.1)
--- NOTE | 2017-06-22 07:01 | PROGRESS NOTE ---
DATE: 06/21/2017 SUBJECTIVE: Postop day #1 status post left total knee replacement. The patient is doing well. Denies chest pain, shortness of breath, fever, chills, nausea, vomiting or headache. OBJECTIVE: Vital signs are stable. She is afebrile. Neurovascular check femoral sciatic nerve is normal. She can do a straight leg raise. LABORATORY DATA: Hematocrit stable in the 30s. INR is 1.0. Electrolytes pending. ASSESSMENT: Doing well. Calves are nontender. Abdomen is soft, nontender at this point in time. PLAN: She will be discharged after PT, OT today. Discharge on 4 mg Coumadin. Check INR on Monday. Advised to wear a knee immobilizer around working with her dogs and walking them so they do not jump on her leg.
--- NOTE | 2017-06-22 07:05 | DISCHARGE SUMMARY ---
CHIEF COMPLAINT: Left knee pain. HISTORY OF PRESENT ILLNESS: Admitted for elective left total knee replacement. At this point in time, the patient's hospital course has been uneventful. She is quite comfortable. She can use her leg well. PAST MEDICAL HISTORY: Remarkable for hypertension, elevated cholesterol, sleep apnea, uses CPAP, hypothyroidism, hyperparathyroidism, osteoarthritis, low back pain, obesity, seasonal allergies, GERD, depression, history of recent breast mastitis and seborrheic keratosis. PAST SURGICAL HISTORY: Remarkable for tonsillectomy, eye surgery, lipoma surgery, oral surgery, bunionectomy, hammertoe surgery, colonoscopies, total knee replacement on the right knee 2014, breast I&D in 2017 recovered. 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 No tobacco use. No alcohol use. Lives by herself. FAMILY HISTORY: Noncontributory. ALLERGIES: TYLENOL WITH CODEINE. PREADMISSION MEDICATIONS: Include Mia, aspirin, baby aspirin, diclofenac, Elocon fenofibrate, Fioricet p.r.n. for headaches, K-Dur, Levoxyl, Lipitor, mometasone topical cream, nystatin, triamcinolone, Pepto-Bismol, Prilosec, Toprol-XL, Tylenol, vitamin C and D, Voltaren topical gel. She will discontinue all anti-inflammatory drugs and continue the rest of her medications. Again discontinue any anti-inflammatory drugs and continue the rest of her medications. P.r.n. pain medications see script. FiberCon, etc. for bowel movements. REVIEW OF SYSTEMS: Noncontributory. ASSESSMENT: Did well status post total knee replacement, left lower extremity. PLAN: Will discharge after PT, OT today. Home health services, etc.
[2017-06-22 07:16] VITALS: BP 129/75; PULSE 110; TEMP 37.4; O2SAT 95
--- NOTE | 2017-06-22 07:17 | Clinical Documentation Query ---
CLINICAL DOCUMENTATION QUERY Dr. LEES, In your clinical opinion is this patient being managed for: ( ) Acute blood loss anemia ( x ) Not Agree ( x ) Other explanation of clinical findings (Please Explain)hemo dilution patient without symptoms ( ) Unable to determine (Please Define) ( ) Need to Discuss The medical record reflects the following clinical findings, treatment, and risk factors. Clinical Indicators: 67 yo female presenting with L knee DJD for a L TKR. Baseline Hgb 12.6/Hct 39.0, post op Hgb 9.6/Hct 30.8. Treatment: monitor PRP's Risk Factors: surgery Please clarify and document your clinical opinion in the progress notes and discharge summary. Terms such as "probable", "suspected", "likely", "questionable", "possible", or "still to be ruled out" are acceptable. IF IN AGREEMENT, YOU MUST DOCUMENT ABOVE DIAGNOSTIC STATEMENT IN DAILY PROGRESS NOTES AND DISCHARGE SUMMARY. This document is not part of the patient's record. Thank You, Marya Benavides RN [phone]
[2017-06-22] MEDS ORDERED: DEXAMETHASONE INJ 10 MG in SYRINGE 0 ML IV ONE (07:30)
--- NOTE | 2017-06-22 08:39 | Discharge Instructions ---
Discharge Instructions Date of Service Jun 21, 2017. Admission Reason for Admission: Left Knee Degenerative Joint Disease Discharge Discharge Diagnosis / Problem: left knee s/p total knee replacement Discharge Goals Goal(s): Decrease discomfort, Improve function, Increase independence Activity Recommendations Activity Limitations: as noted below Lifting Limitations: gradually increase as tolerated Exercise/Sports Limitations: until after follow-up appointment Shower/Bathe: keep incision dry Driving or Machine Use: No driving until cleared by Dr. Miller Weightbearing Status: Left weightbearing (as tolerated) . Instructions / Follow-Up Instructions / Follow-Up New Medicine: * You will likely be taking one or more of these medications: 1. Percocet - Take, as directed, when you need it, every four to six hours to control your pain. 2. Coumadin - Thins your blood to lessen the chance of forming a blood clot. The dose of this is different for each person and is based on your blood tests that are done twice a week. * The most common side effects of pain medicine and iron are nausea and constipation. If nausea or constipation is too much of a problem or if you have any questions about your new medicines or doses, call [facility] at . We will try to help you manage these issues. VERY IMPORTANT TO READ AND REVIEW" Blood Clots and Blood Thinning Medicine: * You are given Coumadin during the immediate post-operative period to lessen the risk of blood clots forming in your legs and/or lungs. Coumadin is usually given for six weeks after surgery. * The prescription is for 2 mg tablets. At discharge, you should understand your dose and take it all at the same time every day, preferably after dinner. * You need to get your blood checked 1 - 2 times per week for six weeks or as directed. * If your dose needs to change, we will call you. Do not take your medication on the day of the blood test until we call you. Pain: * The immediate post-operative period after knee replacement surgery is often quite painful. * You are given a prescription for pain medicine. You should take it, as directed, when you need it, especially before physical therapy and before going to bed. Pain that interferes with sleep is very common and can last several months. * You will likely need pain medicine for the first four to six weeks. It will not stop all of the pain. The pain will lessen and as you feel better, you may change to milder pain medicine such as Tylenol. * The most common side effects of pain medicine are nausea and constipation, so don't take more than you need. Physical Therapy: * You will have physical therapy two or three times each week for four to six weeks after your surgery in order to regain your knee range of motion and to retrain your knee to work properly. * It is just as important to make sure you are getting your knee perfectly straight as it is to regain your knee bend. * Taking a pain pill an hour before therapy can help you have a more productive and comfortable therapy session if needed. Home Exercise: * You were shown a series of exercises (heel props, heel slides, etc.) in the hospital. Do these exercises three to four times each day including the exercises you were shown in physical therapy. Walking: * Get up and walk several times each day. For the first four weeks, try not to stand or walk for more than one hour at a time. If you do stand or walk for more than one hour, you will not hurt anything, but your knee and leg will likely swell. * As you feel comfortable, you may change from the walker or crutches to a cane and then to independent walking. SELF CARE INSTRUCTIONS AFTER TOTAL KNEE REPLACEMENT A. You may need to continue a physical therapy program after discharge from the hospital. There are several options available to you. Your doctor will assist you in selecting the best one for you. 1. An out-patient facility 2 to 3 times a week for therapy or home therapy. 2. Continue working on all exercises taught to you in the hospital. Your goals should be to increase bending of your knee to 90 degrees and beyond and to fully straighten your knee. B. You may progress at your own pace from walking with a walker or crutches to a cane; then to no assistive devices. C. Make walking a part of your daily routine. Be up as much as comfortable with rest periods throughout the day. Rest with leg elevation is very important. Use the ice wrap frequently for the first 3-4 weeks. D. There are no restrictions on activities. You may ride in a car, shop, participate in utility assembler and all social activities. E. Wear the long elastic stockings (TATA hose) 20 hours a day for six weeks after surgery. They can be removed several times a day for laundering and for a shower. F. Do not place a pillow behind your knee when resting. A pillow at your ankle is okay. VERY IMPORTANT TO READ AND REVIEW A. Take Coumadin, Aspirin or Lovenox (blood thinning medications) as directed by your doctor. If on Coumadin, have a pro-time (blood test) drawn according to your doctor's instructions. This will tell the doctor how well the Coumadin is thinning your blood. 1. YOU WILL BE GIVEN AN ORDER AT DISCHARGE FOR PT/INR (BLOOD WORK). PLEASE HAVE THIS DONE INSTRUCTED. PLEASE CALL OUR OFFICE AFTER YOUR BLOODWORK IS COMPLETE SO WE CAN TRACK YOUR RESULTS. IF YOU ARE GOING TO OUTPATIENT PHYSICAL THERAPY, YOU WILL NEED TO GO TO OUTPATIENT TESTING TO HAVE IT DRAWN. B. There are a few signs you need to watch for after you are home. Call [facility] if you notice any of the followin. Increased severe knee pain. Some pain is expected especially when you exercise. 2. Increased swelling in your leg or knee; pain or swelling of the calf muscle in either lower leg. 3. Any fluid drainage from the incision. 4. Shortness of breath or chest pain. C. Please call [facility] at if you have any concerns or questions about your operation or recovery. The doctor or his nurse will return your call promptly. D. You must take antibiotics before dental work, bladder, bowel or other surgery. Call the office to obtain a prescription at least 2 days prior to your appointment. * CALL IF INCREASED PAIN, REDNESS, DRAINAGE OR FEVER GREATER THAT 101. * Sutures should be removed 12-14 days after surgery unless you are on chronic steriods, then it will be 14-18 days after surgery. Call your doctor if: * Temperature above 101 degrees F. * Pain not relieved by pain medicine ordered. * Increased drainage or redness from incision. * Notify your doctor with any questions or concerns. Current Hospital Diet Patient's current hospital diet: Regular Diet Discharge Diet Recommended Diet: Regular Diet Procedures Procedures Performed: Left Total Knee Arthroplasty Pending Studies Studies pending at discharge: no Medical Emergencies . Who to Call and When: Medical Emergencies: If at any time you feel your situation is an emergency, please call 911 immediately. . Non-Emergent Contact Non-Emergency issues call your: Primary Care Provider, Surgeon Call Non-Emergent contact if: temperature is above 101, wound has increased drainage, wound has increased redness, wound has increased pain, you have any medication questions . "Provider Documentation" section prepared by Robert Campa PA-C. . VTE Core Measure Inpt VTE Proph given/why not?: Warfarin (Coumadin), T.E.D. Stockings, SCD's [place] Drug Monitoring Program Search Results: no issues identified
[2017-06-22] MEDS: FERROUS GLUCONATE 324 MG TAB PO SCH ×2 (08:56→12:17)
[2017-06-22] MEDS: DOCUSATE SODIUM 100 MG CAP PO SCH (08:57)
[2017-06-22] MEDS: ASPIRIN 81 MG ECTAB PO SCH (08:57)
[2017-06-22] MEDS: MULTIVITAMIN TAB PO SCH (08:58)
[2017-06-22] MEDS: PANTOprazole SOD 40 MG TAB PO SCH (08:58)
--- NOTE | 2017-06-22 09:04 | Anesthesiology Progress Note ---
Anesthesia Post Op Note Date & Time Jun 22, 2017 at 09:03 Vital Signs Pain Intensity: 2.0 Vital Signs Past 12 Hours Date Time Temp Pulse Resp B/P (MAP) Pulse Ox O2 Delivery O2 Flow Rate FiO2 06/22/17 07:16 37.4 110 18 129/75 (93) 95 Room Air 06/22/17 03:39 37.2 77 22 108/67 (81) 98 Room Air 06/21/17 23:50 Room Air CPAP 06/21/17 23:15 36.9 71 18 120/73 (89) 98 CPAP 06/21/17 21:59 74 Notes Mental Status: alert / awake / arousable, participated in evaluation Pt Amnestic to Procedure: Yes Nausea / Vomiting: adequately controlled Pain: adequately controlled Airway Patency, RR, SpO2: stable & adequate BP & HR: stable & adequate Hydration State: stable & adequate Neuraxial Anesthesia: sensory block resolved Anesthetic Complications: no major complications apparent
[2017-06-22 11:00] VITALS: BP 129/75; PULSE 110; TEMP 37.4; O2SAT 95
[2017-06-22] MEDS ORDERED: WARFARIN SOD 5 MG TAB PO ONE (13:15)
--- NOTE | 2017-06-22 13:54 | [facility] Operative Report ---
Operative Report Operative Date Jun 21, 2017. Pre-Operative Diagnosis Left Knee End-Stage Degenerative Joint Disease Post-Operative Diagnosis Left Knee End-Stage Degenerative Joint Disease Procedure(s) Performed Left Total Knee Arthroplasty Surgeon Dr. Miller Bridge Operator Slip Surgeon(s) TAMMY Farias Estimated Blood Loss 50 ml Findings Left knee DJD Fluids 1300cc Specimens A. Left Knee Bone and Tissue Drains none Anesthesia spinal/block Complication(s) None Disposition Recovery Room / PACU Indications This 67 year old white female presented to the office with complaints of Left knee pain that persisted despite activity modification, use of oral pain medication, and physical therapy. She had a previous Right knee TKA and did well with that. She elected to proceed with the same on the left knee. Preop imaging has been obtained. Description of Procedure Patient was administered a regional block and spinal anesthetic and then taken to the operating room where she was given sedation. She was prepped and draped in usual sterile fashion. Please see Dr. Miller's operative report for specifics of the procedure. I was present for the entire case from initial patient positioning through final wound closure. Assistance was provided in tissue traction, hemostasis, trial implant placement, final implant placement, and final wound closure. Patient was taken to the recovery room in satisfactory condition. I attest to the content of the Intraoperative Record and any orders documented therein. Any exceptions are noted below.
== END 2017-06-22 15:51 | disposition home health service (06) | DRG 470 ==
LOC: C.ACU 05:14 → C.3E 06:29 → ENRESERV 09:26
PROVIDERS: ADMIT Physical Medicine & Rehabilitation Sports Medicine; ATTEND Physical Medicine & Rehabilitation Sports Medicine
PROC: 0SRD0J9 Replacement of Left Knee Joint with Synthetic Substitute, Cemented, Open Approach (ICD-10-PCS; principal; 2017-06-21 07:00)
DX: M17.12 Unilateral primary osteoarthritis, left knee (principal); M24.362 Pathological dislocation of left knee, not elsewhere classified; R32 Unspecified urinary incontinence; I12.9 Hypertensive chronic kidney disease with stage 1 through stage 4 chronic kidney disease, or unspecified chronic kidney disease; N18.3 Chronic kidney disease, stage 3 (moderate); K21.9 Gastro-esophageal reflux disease without esophagitis; E78.00 Pure hypercholesterolemia, unspecified; E89.0 Postprocedural hypothyroidism; E78.5 Hyperlipidemia, unspecified; M54.5 Low back pain; J30.2 Other seasonal allergic rhinitis; L82.1 Other seborrheic keratosis; G43.909 Migraine, unspecified, not intractable, without status migrainosus; G47.33 Obstructive sleep apnea (adult) (pediatric); E66.9 Obesity, unspecified; Z99.89 Dependence on other enabling machines and devices; Z68.38 Body mass index [BMI] 38.0-38.9, adult; Z96.651 Presence of right artificial knee joint; Z86.718 Personal history of other venous thrombosis and embolism; Z79.1 Long term (current) use of non-steroidal anti-inflammatories (NSAID); Z79.82 Long term (current) use of aspirin; Z79.899 Other long term (current) drug therapy

== ENCOUNTER → 2017-06-26 | Outpatient (CLI) | payer OTHER, BC ==
[~2017-06-26] MED LIST changes: -CHOL2000 PO; -DICL-201 PO; -DICL1GEL12 EXT; +OXYC-57 PO; +WARF2TAB PO
[2017-06-26 14:49] LABS: INR 1.2 (0.9-1.1)
== END | disposition home or self-care (01) ==
LOC: C.LABSPEC 14:11
PROVIDERS: ATTEND Physical Medicine & Rehabilitation Sports Medicine
DX: Z79.01 Long term (current) use of anticoagulants (principal); Z51.81 Encounter for therapeutic drug level monitoring

== ENCOUNTER → 2017-07-03 | Outpatient (CLI) | payer OTHER, BC ==
[2017-07-03 11:05] LABS: INR 2.3 (0.9-1.1); PROTHROMBIN TIME (PATIENT) 25.3 SECONDS (9.0-12.0)
== END | disposition home or self-care (01) ==
LOC: C.LABSPEC 10:46
PROVIDERS: ATTEND Physical Medicine & Rehabilitation Sports Medicine
DX: Z79.01 Long term (current) use of anticoagulants (principal); Z51.81 Encounter for therapeutic drug level monitoring

== ENCOUNTER → 2017-07-24 | Outpatient (CLI) | payer OTHER, BC ==
--- NOTE | 2017-07-24 15:09 | MAMMOGRAPHY REPORT ---
UNILATERAL RIGHT DIGITAL DIAGNOSTIC MAMMOGRAM TOMOSYNTHESIS WITH CAD: 07/24/2017 CLINICAL HISTORY: 67-year-old woman with a history of a 5 cm right breast abscess status post incisio n and drainage in March 2017. She presents for follow-up after resolution. TECHNIQUE: Right breast tomosynthesis in addition to standard 2D mammography was performed. Current matilde contreras was also evaluated with a Computer Aided Detection (CAD) system. COMPARISON: Comparison is made to exams dated: 03/22/2017 ultrasound, 03/22/2017 mammogram, 09/11/2015 m ammogram, 09/10/2014 mammogram, 09/05/2013 mammogram, and 09/04/2012 mammogram - [facility] nter. BREAST COMPOSITION: The tissue of the right breast is almost entirely fatty. FINDINGS: There has been complete mammographic resolution of a previously observed dense 5 cm rounded mass in the periareolar and subareolar right breast. There is mild architectural distortion around the right nipple best appreciated on the MLO view, due to prior incision and drainage. Currently, th ere is no evidence of a suspicious mass, asymmetry, area of distortion or suspicious macrocalcificati ons in the right breast. Recommend return to annual screening mammography schedule, due in March 26. IMPRESSION: ACR BI-RADS CATEGORY 2: BENIGN Complete mammographic resolution of the previously observed 5 cm abscess in the subareolar right [address]. There is no mammographic evidence of malignancy in the right breast. Return to annual mammogram screening schedule is recommended (due March 2018). The patient has been verbally notified of the r esults. Approximately 10% of breast cancers are not detected with mammography. A negative mammographic report should not delay biopsy if a clinically suggestive mass is present. Myrtle Gomes M.D. ay/:07/24/2017 14:26:36 [employer] Associate: Joe HART(R)(M), [facility] letter sent: Normal 1/2 BI-RADS Code: ACR BI-RADS Category 2: Benign
== END | disposition home or self-care (01) ==
LOC: C.MAMM 13:11
PROVIDERS: ATTEND Surgery
DX: Z09 Encounter for follow-up examination after completed treatment for conditions other than malignant neoplasm (principal); Z86.19 Personal history of other infectious and parasitic diseases

== ENCOUNTER → 2017-08-04 | Outpatient (CLI) | payer OTHER, BC ==
[~2017-08-04] MED LIST changes: -METO-648 PO; +METO200T31 PO
== END | disposition home or self-care (01) ==
LOC: C.RDSM 10:30
PROVIDERS: ATTEND Physical Medicine & Rehabilitation Sports Medicine
DX: Z96.651 Presence of right artificial knee joint (principal)

== ENCOUNTER → 2017-11-01 | Outpatient (CLI) | payer OTHER, BC | END | disposition home or self-care (01) | LOC: C.RDSM 15:34 | PROVIDERS: ATTEND Podiatrist | DX: M25.572 Pain in left ankle and joints of left foot (principal); M79.671 Pain in right foot; M79.672 Pain in left foot ==

== ENCOUNTER → 2018-03-27 | Outpatient (CLI) | payer OTHER, BC ==
[~2018-03-27] MED LIST changes: -OXYC-57 PO; -WARF2TAB PO
--- NOTE | 2018-03-27 15:13 | MAMMOGRAPHY REPORT ---
BILATERAL DIGITAL SCREENING MAMMOGRAM TOMOSYNTHESIS WITH CAD: 03/27/2018 CLINICAL HISTORY: Routine screening. TECHNIQUE: The study was acquired using full field digital technology and interpreted from soft copy. Breast tomosynthesis in addition to standard 2D mammography was performed. Current study was also ev aluated with a Computer Aided Detection (CAD) system. COMPARISON: Comparison is made to exams dated: 07/24/2017 mammogram, 03/22/2017 mammogram, 09/11/2015 m ammogram, 09/10/2014 mammogram, 09/05/2013 mammogram, and 09/04/2012 mammogram - [facility]ter. BREAST COMPOSITION: The tissue of both breasts is almost entirely fatty. FINDINGS: Linear scar markers overlie each breast. There are a few scattered benign rim calcificatio ns. No suspicious mass, architectural distortion or cluster of microcalcifications is seen. IMPRESSION: ACR BI-RADS CATEGORY 1: NEGATIVE There is no mammographic evidence of malignancy. A 1 year screening mammogram is recommended.( [id number]) The patient will receive written notification of the results. Some breast cancers are not detected with mammography. A negative mammographic report should not kati y biopsy if a clinically suggestive mass is present. Myrtle Gomes M.D. ay/:03/27/2018 14:55:39 Sheet Roller Operator: RT Juan(Jhony)(M), [facility] letter sent: Normal 1/2 BI-RADS Code: ACR BI-RADS Category 1: Negative
== END | disposition home or self-care (01) ==
LOC: C.MAMM 13:02
PROVIDERS: ATTEND Obstetrics & Gynecology
DX: Z12.31 Encounter for screening mammogram for malignant neoplasm of breast (principal)